=== PATIENT | female | born 1960 | race Caucasian/White ===

== ENCOUNTER 2024-11-02 12:48 | Emergency (ER) | payer OTHER, SELFPAY ==
[2024-11-02 13:17] VITALS: BP 108/85
[2024-11-02 13:42] LABS: % Basophils 0.7 % (0-2); % Eosinophils 0.5 % (0-6); % Immature Granulocytes 0.2 % (0-0.5); % Lymphocytes 27.2 % (20.5-51.1); % Monocytes 8.5 % (1.7-9.3); % Neutrophils 62.9 % (42.2-75.2); Absolute Basophils 0.1 10^3/uL (0-0.2); Absolute Eosinophils 0.1 10^3/uL (0-0.7); Absolute Lymphocytes 2.5 10^3/uL (1.2-3.4); Absolute Monocytes 0.8 10^3/uL (0.1-0.6); Absolute Neutrophils 5.7 10^3/uL (1.4-6.5); Hematocrit 41.6 % (37.0-47.0); Hemoglobin 13.2 g/dL (12.0-16.0); Mean Corp Hgb Conc. 31.7 g/dL (33.0-37.0); Mean Corpuscular Hgb 27.7 pg (27.0-31.0); Mean Corpuscular Volume 87.4 fL (81.0-99.0); Mean Platelet Volume 9.2 fL (7.4-10.4); Nucleated Red Blood Cells % 0 %; Platelet Count 285 10^3/uL (130-400); Red Blood Cell Count 4.76 10^6/uL (4.20-5.40); Red Cell Dist. Width 13.5 % (11.5-14.5); White Blood Cell Count 9.1 10^3/uL (4.8-10.8)
--- NOTE | 2024-11-02 14:32 | ED.GENMED ---
History of Present Illness
General
Chief Complaint: Heart Rate Problem
Time Seen by Provider: 11/02/24 13:40
History of Present Illness
History of Present Illness:
64-year-old female with prior history of atrial fibrillation presenting to the emergency department for concern of palpitations. Patient reports that she has been feeling palpitations and elevated heart rate for the past 3 days, however escalated
prior to arrival. Does note that she had 2 episodes of A-fib in the past, about 2 years ago and 7 years ago, is on 25 mg of metoprolol daily, however no anticoagulation. Ports that prior episodes have been triggered by stress, denies any increase
stress presently. Denies any associated chest pain or difficulty breathing. Denies fever or recent illness. Denies abdominal pain or GI symptoms. Denies additional acute medical complaints
Past History
Past History
ED Past Medical History: Arrthythmia
ED Past Surgical History: None
Social History
Tobacco: Non-smoker
Alcohol: None
Drug: None
Personal:
Living: with family
Family History
Family History: Other
Phy Exam
Physical Exam
Physical Exam:
General: Well-appearing, no clinical signs of dehydration, nontoxic and in no acute distress
HEENT: protecting airway
Neck: appears supple
CV: Tachycardia with irregularly irregular rhythm
Resp: No accessory muscle use, no increased work of breathing, lungs clear to auscultation bilaterally
Abd: Soft and non-distended, no tenderness to palpation
Extremities: No deformities, no swelling, no erythema, pulses and sensation intact
Neuro: alert, no focal neurologic deficit
: deferred
Rectal: deferred
Psych: Normal affect
Skin: Intact
Scores
[id number] Score for Afib Stroke Risk
Age in Years (65=0, 65-74=1, >/=75=2): 65-74
Sex (Female=+1): Female
Congestive Heart Failure History (Yes=+1): No
Hypertension History (Yes=+1): No
Stroke/TIA/Thromboembolism History (Yes=+2): No
Vascular Disease History (Yes=+1): No
Diabetes Mellitus (Yes=+1): No
Score: 2
Anticoagulation Recommendations: Recommend anticoagulation (as validated in nonvalvular fib)
Course
Orders/Labs/Results
Orders:
Orders
11/02/24 12:49
ECG [Electrocardiogram (*1)] Urgent
Reason for Study: Palpitations
EKG- Treatment ONCE
11/02/24 13:26
Complete Blood Count/With Diff Urgent
Comprehensive Metabolic Panel Urgent
11/02/24 13:58
Diltiazem HCl [Cardizem] 15 mg IV NOW STA
11/02/24 16:28
Metoprolol [Lopressor] 25 mg PO NOW STA
11/02/24 16:29
Apixaban [Eliquis] 10 mg PO ONCE ONE
Abnormal Lab Results
11/02/24
13:26
MCHC 31.7 L g/dL
(33.0-37.0)
Absolute Monos (auto) 0.8 H 10^3/uL
(0.1-0.6)
BUN 18 H mg/dl
(7-17)
Glucose 107 H mg/dl
(70-99)
11/02/24 13:26
11/02/24 13:26
Vital Signs
Initial and Last Documented VS:
Initial Vital Signs
Temp Pulse Resp BP Pulse Ox
97.8 F 64 19 108/85 97
11/02/24 13:17 11/02/24 13:17 11/02/24 13:17 11/02/24 13:17 11/02/24 13:17
Last Documented Vital Signs
Temp Pulse Resp BP Pulse Ox
97.6 F 91 17 97/71 98
11/02/24 15:14 11/02/24 16:00 11/02/24 16:00 11/02/24 16:00 11/02/24 15:45
MDM/Problems Addressed
MDM/Problems Addressed:
64-year-old female with prior history of A-fib on 25 mg of metoprolol daily presenting for pump patient is with start about 3 days ago. Vital signs on arrival significant for tachycardia.
On exam, patient is resting comfortably, no acute distress or discomfort. EKG confirms A-fib with RVR with suspected etiology of patient's presenting symptoms. Patient otherwise hemodynamically stable. Will screen with laboratory analysis and
administer diltiazem to slow patient's heart rate. Do not feel patient is a candidate for cardioversion at this time with symptom onset about 3 days ago. Will consult with cardiology
16:30 - In discussion with cardiology, [id number] of 2, recommending Eliquis and increase metoprolol. Will administer Eliquis and metoprolol in the emergency department and provide prescriptions. Coupon provided for Eliquis. Otherwise heart
rate remained stable and patient remained stable, with close and will follow-up with general utility machine operator. Return precautions discussed and patient verbalized understand
*EKG
Interpreted by ED Provider?: Yes
EKG Intrepretation Date: 11/02/24
EKG Intrepretation Time: 14:34
Interpretation: abnormal
Comparison EKG: changes noted (previously sinus)
Heart Rate: 153
Rate: tachycardiac
Rhythm: a-fib
[place]: normal axis
QRS Pattern: normal QRS
Ischemia: no ischemia
*Critical Care Note
Total Time (30-74mins, 75-104mins- exclusive of procedures): Not Applicable
ED Attending Note
-
Portions of this chart may have been created with voice recognition software.� Occasional wrong word or��sound alike� substitutions may have occurred due to the inherent limitations of voice recognition software.
Discharge Plan
Departure
Prescriptions:
No Action
cholecalciferol (vitamin D3) 2,000 UNITS tablet
2,000 unit PO DAILY
metoprolol tartrate 12.5 MG tablet
12.5 mg PO BID Qty: 60 3RF
Patient Comments:
03/12/21 - pt stated took an extra dose of lopressor at 0030 03/12/21
aspirin 81 MG tablet,delayed release (DR/EC)
81 mg PO DAILY
Referrals:
Carlos Whyte DO [Family Provider] -
Interventions
Interventions:
*Risk Screen - Suicide Last Done: 11/02/24 13:17
*General Assessment Last Done: 11/02/24 13:17
*Neglect/Abuse Screening Last Done: 11/02/24 13:17
ED- Cardiac Assessment Last Done: 11/02/24 15:19
ED- Pulmonary Assessment Last Done: 11/02/24 15:20
Discharge Date and Time
Print Language: ZAMBIAN
[2024-11-02 15:13] VITALS: BMI 23.1
[2024-11-02 15:14] VITALS: BP 92/67
[2024-11-02 15:16] VITALS: BP 100/75
[2024-11-02] MEDS: CARDIZEM 15 MG IV (15:17)
[2024-11-02 15:30] VITALS: BP 98/70
[2024-11-02 15:33] LABS: ALT (SGPT) 22 U/L (0-35); AST (SGOT) 29 U/L (14-36); Albumin 4.8 g/dl (3.5-5.0); Alkaline Phosphatase 64 U/L (38-126); Blood Urea Nitrogen 18 mg/dl (7-17); Calcium 10.1 mg/dl (8.4-10.2); Carbon Dioxide 22 mmol/L (22-30); Chloride 105 mmol/L (98-107); Estimated Creatinine Clearance 82 ml/min; Glucose 107 mg/dl (70-99); Potassium 4.8 mmol/L (3.5-5.1); Sodium 139 mmol/L (135-145); Total Bilirubin 0.7 mg/dl (0.2-1.3); eGFR > 60.00
[2024-11-02 16:00] VITALS: BP 97/71
[2024-11-02 16:30] VITALS: BP 107/84
[2024-11-02] MEDS: LOPRESSOR 25 MG PO (16:49)
[2024-11-02] MEDS: ELIQUIS 10 MG PO (16:49)
== END 2024-11-02 17:01 | disposition home or self-care (01) ==
LOC: EMR 12:48
PROVIDERS: Physician Assistant; EMERGENCY PHYSICIAN Student in an Organized Health Care Education/Training Program; FAMILY PHYSICIAN Family Medicine
DX: I48.91 Unspecified atrial fibrillation (principal); Z79.899 Other long term (current) drug therapy
CPT/HCPCS: 99284; 96374; 80053; 85025; 93005

== ENCOUNTER 2025-06-10 02:33 | Emergency (ER) | payer OTHER, SELFPAY ==
[2025-06-10] VITALS (15 sets, daily range): BP systolic 95–143; BP diastolic 62–129; BMI 22.1
--- NOTE | 2025-06-10 03:02 | ED.GENMED ---
History of Present Illness
General
Chief Complaint: Heart Rate Problem
Source: patient, records and spouse
Exam Limitations: none
Time Seen by Provider: 06/10/25 02:53
Nursing documentation reviewed up to this point in time: agreed with
History of Present Illness
History of Present Illness:
64-year-old female history of PAF followed by Dr. Palacio metoprolol 25 twice daily not anticoagulated, believes she went into A-fib about an hour ago woke her from her sleep she states she knows when she goes into A-fib has not been in it for
several months previously when she went into she was treated with a course of Eliquis which she discontinued after discussing with her account financial manager she did go out of the rhythm, does not generally like being on anticoagulation she had some hematuria
previously no chest pain no shortness of breath no fevers no cough
Past History
Past History
ED Past Medical History: Arrthythmia
ED Past Surgical History: None
Social History
Tobacco: Non-smoker
Alcohol: None
Drug: None
Personal:
Living: with family
Family History
Family History: Other
Review of Systems
Review of Systems
All Other Systems: Not applicable
Constitutional: Denies fever or fatigue
Respiratory: Reports no symptoms
Cardiac: Reports palpitations; Denies chest pain
Phy Exam
Physical Exam
Physical Exam:
Physical Exam
General: no apparent distress, not acutely ill
Neck: Without jaundice
Heart: Tachycardic
Lungs: no acute respiratory distress. clear bilaterally
Abdomen: Nontender
Neuro: alert and oriented. no focal neurological deficits
Skin: no rash
Psychiatric: well kept. interactive and cooperative
Extremities: no edema. no calf tenderness.
Course
Orders/Labs/Results
Orders:
Orders
06/10/25 02:38
EKG [Electrocardiogram (*1)] Urgent
Reason for Study: Palpitations
EKG- Treatment ONCE
06/10/25 03:04
Metoprolol [Lopressor] 5 mg IV NOW STA
06/10/25 03:30
Diltiazem 125 mg/125 ml Nss [Cardizem] 125 mg in 125 ml IV PER PROTOCOL
Initial dose in mg/hr, then titrate:: 5
Titrate to keep:: Heart rate 80-100 bpm
Titrate by mg/hr:: 5 mg/hr
Frequency of titrations (minutes):: 15
Maximum dose in mg/hr:: 15
Diltiazem HCl [Cardizem] 10 mg IV NOW STA
06/10/25 05:18
ASA Classification Routine
Propofol [Diprivan] 100 mg IV NOW STA
06/10/25 05:30
EKG [Electrocardiogram (*1)] Urgent
Reason for Study: Atrial Fibrillation
EKG- Treatment ONCE
06/10/25 05:32
Apixaban [Eliquis] 5 mg PO NOW STA
Vital Signs
Initial and Last Documented VS:
Initial Vital Signs
Pulse
130
06/10/25 02:41
Last Documented Vital Signs
Temp Pulse Resp BP Pulse Ox
98.4 F 64 19 107/70 96
06/10/25 05:41 06/10/25 06:15 06/10/25 06:15 06/10/25 06:15 06/10/25 06:15
Procedures
Cardioversion
Indication:: Afib
Performed by:: irma
Synchronized?: Yes
Energy Used: 200 joules
Number of attempts: 1
Successful?: Yes
ASA Risk Score: Class II
Any reaction or bad outcome to prior sedation/anesthesia?: No history of a reaction
Sedation level to be attained: moderate
Chart and allergies reviewed: Yes
Patient reassessed prior to sedation: Yes
Time out completed at (validating right patient & procedure): 05:26
History of difficult intubation: No
Airway free of obstruction: Yes
Patient has a gag reflex: Yes
Patient is able to open mouth: Yes
Patient has no dentures: Yes
Patient has no loose teeth: Yes
Medication administered by Provider during Moderate Sedation: IV Propofol (mg)
Total dose administered: 50
Time drug administered: :
Start Time: 05:26
Stop Time: 05:36
MDM/Problems Addressed
Differential Diagnosis Includes:
A-fib A. tach SVT
MDM/Problems Addressed:
Rapid A-fib
Chronic conditions affecting care: Arrhythmia
Acute Exacerbation and/or Progression of Chronic Illness: Arrhythmia
*Pulse Oximetry
SaO2: 98
Oxygen Mode of Delivery: Room air
Patient hypoxic: no
*EKG
Interpreted by ED Provider?: Yes
Interpretation: abnormal
Comparison EKG: no comparison EKG present
Heart Rate: 118
Rate: tachycardiac
Rhythm: a-fib
Ischemia: non-specific ST changes
*Electrical Systems Design Engineer Interpretation
Rate: tachycardiac
Interpretation: abnormal
Heart Rate: 120
Rhythm: a-fib
*Critical Care Note
Total Time (30-74mins, 75-104mins- exclusive of procedures): 32
Update Note
Update Note:
330, update patient now tachycardic will start on diltiazem
5:15 AM patient is still in rapid A-fib despite beta-chiqui and calcium channel chiqui reviewed treatment plan options will proceed with DC cardioversion, inserted she went into the rhythm in the past few hours none over the past months
successfully converted
Will start back on Eliquis
ED Attending Note
-
Portions of this chart may have been created with voice recognition software.� Occasional wrong word or��sound alike� substitutions may have occurred due to the inherent limitations of voice recognition software.
Discharge Plan
Departure
Patient Disposition: Home (Routine Discharge)
Date of Disposition: 06/10/25
Time of Disposition: 05:35
Patient with high blood pressure during this ER visit?: No
Condition: Good
Discharge Problem:
Rapid atrial fibrillation
Instructions: Atrial Fibrillation (DC), MODERATE SEDATION ADULT
Prescriptions:
New
Eliquis 5 mg tablet
5 mg PO BID Qty: 60 0RF
No Action
cholecalciferol (vitamin D3) 2,000 UNITS tablet
2,000 unit PO DAILY
metoprolol tartrate 12.5 MG tablet
12.5 mg PO BID Qty: 60 3RF
Patient Comments:
03/12/21 - pt stated took an extra dose of lopressor at 0030 03/12/21
aspirin 81 MG tablet,delayed release (DR/EC)
81 mg PO DAILY
Eliquis DVT-PE Treat 30D Start 5 mg (74 tabs) tablets,dose pack
See Rx Instructions .ROUTE .COMPLEX Qty: 74 0RF
Rx Instructions:
orally per package directions
metoprolol tartrate 25 mg tablet
25 mg PO BID Qty: 60 0RF
Referrals:
Carlos Palacio MD [Active, Cardiology] - Next open appointment
UNKNOWN - PT DOES,NOT KNOW [Family Provider]
Activity Restrictions/Additional Instructions:
Continue your medications as prescribed
Restart Eliquis 5 mg twice a day
Follow-up with Dr. Palacio
Interventions
Interventions:
*Risk Screen - Suicide Last Done: 06/10/25 02:39
*General Assessment Last Done: 06/10/25 06:43
*Neglect/Abuse Screening Last Done: 06/10/25 06:43
*ED- Fall Risk Assessment Last Done: 06/10/25 06:43
*ED COVID-19 Vaccine History Last Done: 06/10/25 06:43
*Nursing Disposition Last Done: 06/10/25 06:45
ED- Cardiac Assessment Last Done: 06/10/25 03:43
ED- Pulmonary Assessment Last Done: 06/10/25 03:43
Discharge Date and Time
Discharge Date/Time: 06/10/25 06:44
Print Language: YI
[2025-06-10] MEDS: LOPRESSOR 5 MG IV (03:13)
[2025-06-10] MEDS: CARDIZEM 10 MG IV (03:34)
[2025-06-10] MEDS: CARDIZEM 125 IV (03:34)
[2025-06-10] MEDS: ELIQUIS 5 MG PO (06:00)
--- NOTE | 2025-06-13 21:00 | EDRN ---
CARDIZEM DRIP STARTED @ 0435 ON 06/10. DRIP WAS STOPPED AND DISCONTINUED 2 05:30 06/10.
== END 2025-06-10 06:44 | disposition home or self-care (01) ==
LOC: EMR 02:33
PROVIDERS: EMERGENCY PHYSICIAN Emergency Medicine
DX: I48.0 Paroxysmal atrial fibrillation (principal); I47.10 Supraventricular tachycardia, unspecified
CPT/HCPCS: 99291; 92960; 96365; 96375 ×2; 99152; 93005